=== PATIENT | male | born 1985 | race Caucasian/White ===

== ENCOUNTER 2024-11-07 22:16 | Emergency (ER) | payer OTHER, SELFPAY ==
[2024-11-07 22:24] VITALS: BP 110/73; PULSE 53; RESP 23; O2SAT 96
[2024-11-07 22:26] VITALS: BP 110/73; PULSE 55; RESP 13; TEMP 36.5; O2SAT 98; BMI 27.6
[2024-11-07 22:30] VITALS: BP 110/72; PULSE 50; RESP 12; O2SAT 96
--- NOTE | 2024-11-07 22:32 | DI.RAD.S_ITS ---
PROCEDURE: XR CHEST 1V INDICATIONS: Chest Pain, syncope TECHNIQUE: One view of the chest was acquired. COMPARISON: None. FINDINGS: Surgical changes and devices: None. Lungs and pleura: Lungs are clear. No pleural effusions or pneumothorax. Mediastinum: Mediastinal contours appear normal. Heart size is normal. Bones and chest wall: No suspicious bony lesions. Overlying soft tissues appear unremarkable. IMPRESSION: No acute cardiothoracic process. Dictated by: Dima Ravi M.D. on 11/07/2024 at 23:33 Approved by: Dima Ravi M.D. on 11/07/2024 at 23:34
--- NOTE | 2024-11-07 22:32 | EKG_ITS ---
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
[2024-11-07 23:00] VITALS: BP 105/67; PULSE 51; RESP 14; O2SAT 95
[2024-11-07 23:02] LABS: Prothrombin Time 11.6 SECONDS (9.4-12.5)
[2024-11-07 23:03] LABS: Add Manual Diff / Slide Review NO; Basophils Absolute Auto 100 /uL (0-100); Basophils Percent Auto 0.9 % (0-2); Eosinophils Absolute Auto 200 /uL (0-450); Eosinophils Percent Auto 2.7 % (2-4); Hematocrit 39.9 % (41-53); Hemoglobin 13.5 g/dL (13.5-17.5); Lymphocytes Absolute Auto 2100 /uL (1100-4500); Lymphocytes Percent Auto 27.2 % (25-40); Mean Corpuscular HGB Conc 33.7 % (30-36); Mean Corpuscular Hemoglobin 32.1 PG (26-34); Mean Corpuscular Volume 95.2 fL (80-100); Monocytes Absolute Auto 800 /uL (0-900); Monocytes Percent Auto 10.5 % (3-14); Neutrophils Absolute Auto 4500 /uL (1500-7000); Neutrophils Percent Auto 58.7 % (50-75); Platelet Count 173 X10^3/uL (150-400); Red Blood Cell Count 4.19 X10^6/uL (4.5-5.9); White Blood Cell Count 7.7 X10^3/uL (4.5-11.0)
[2024-11-07 23:04] LABS: PTT Partial Thromboplastin Tim 27 SECONDS (25.1-36.5)
[2024-11-07 23:09] LABS: Alanine Aminotransferase 24 IU/L (<50); Albumin 4.4 g/dL (3.5-5.0); Albumin Globulin Ratio 1.6 (1.0-2.8); Alkaline Phosphatase 58 U/L (38-126); Aspartate Aminotransferase 33 IU/L (17-59); BUN Creatinine Ratio 12.9 (6-22); Bilirubin Total 0.4 mg/dL (0.2-1.3); Blood Urea Nitrogen 12 mg/dL (9-20); Calcium 9.2 mg/dL (8.4-10.2); Carbon Dioxide 25 mmol/L (22-32); Chloride 106 mmol/L (98-107); Creatine Kinase 267 U/L (55-170); Estimated Glomerular Filt Rate > 60 mL/min (>60); Globulin 2.7 g/dL (1.7-4.1); Glucose 122 mg/dL (70-99); HEMOLYSIS < 15 (0-50); Lipase 38 U/L (23-300); Magnesium 1.9 mg/dL (1.6-2.3); Potassium 3.3 mmol/L (3.4-5.1); Sodium 138 mmol/L (137-145); Total Protein 7.1 g/dL (6.3-8.2)
[2024-11-07 23:20] LABS: NT-proBNP (BNP-Adult 18+) < 20 pg/mL (<125); Troponin I < 0.012 ng/mL (0.01-0.034)
[2024-11-07 23:30] VITALS: BP 117/64; PULSE 69; RESP 15; O2SAT 94
[2024-11-08] VITALS (7 sets, daily range): BP systolic 111–138; BP diastolic 66–85; PULSE 53–70; RESP 13–26; O2SAT 97–99
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
[2024-11-08] MEDS: SODIUM CHLORIDE 0.9% 1,000 ML 1000 ML IV (00:40)
[2024-11-08] MEDS: HYDROMORPHONE 0.5 MG INJ IV (01:35)
[2024-11-08 01:51] LABS: Troponin I < 0.012 ng/mL (0.01-0.034)
[2024-11-08] MEDS: KETOROLAC 30 MG/ML VIAL 15 MG IV (02:19)
[2024-11-08] MEDS: methocarbamoL 500 MG TABLET PO (02:19)
[2024-11-08] MEDS: HYDROCODONE/ACET 5/325 PREPACK 1 BOTTLE MISC (02:37)
[2024-11-08] MEDS: HYDROCODONE/ACET 5/325 TABLET 1 TAB PO (02:37)
== END 2024-11-08 02:51 | disposition home or self-care (01) ==
PROVIDERS: Emergency Provider Emergency Medicine
DX: R55 Syncope and collapse (principal); M54.50 Low back pain, unspecified
CPT/HCPCS: 36415; 71045; 71275; 74174; 80053; 82550; 83605; 83690; 83735; 83880; 84484; 85025; 85610; 85730; 93005; 93010; 96361; 96374; 96375; 99284; J1171; J1885; Q9967

== ENCOUNTER → 2024-11-11 15:11 | Outpatient (CLI) | payer OTHER, SELFPAY ==
--- NOTE | 2024-11-11 15:13 | DI.RAD.S_ITS ---
PROCEDURE: XR LUMBAR SPINE 2-3V INDICATIONS: acute pain x 3 days, lumbar spine TECHNIQUE: 3 views of the lumbar spine were acquired. COMPARISON: None. FINDINGS: Bones: 5 [id number] vertebrae are present. Moderate to severe L5-S1 disc height loss with adjacent endplate sclerosis and anterior osteophytosis. There is normal bony alignment. No vertebral body compression fractures. No suspicious bony lesions. Soft tissues: Overlying bowel gas pattern is normal. No suspicious soft tissue calcifications. IMPRESSION: Degenerative change at the L5-S1 level without evidence of acute bony abnormality. Dictated by: Dima Barbosa M.D. on 11/13/2024 at 1:48 Approved by: Dima Barbosa M.D. on 11/13/2024 at 1:49
== END ==
PROVIDERS: Referring Provider Physician Assistant; Visit Provider Physician Assistant
DX: S39.012A Strain of muscle, fascia and tendon of lower back, initial encounter (principal); X58.XXXA Exposure to other specified factors, initial encounter
CPT/HCPCS: 72100

== ENCOUNTER → 2024-11-20 08:40 | Outpatient (CLI) | payer OTHER, SELFPAY ==
[2024-11-20 10:05] LABS: Cholesterol 213 mg/dL (140-199); Creatine Kinase 189 U/L (55-170); HDL Cholesterol 40 mg/dL (40-60); LDL Cholesterol Calculated 156 mg/dL (<100); Triglycerides 86 mg/dL (35-150)
== END ==
PROVIDERS: PCP Family Medicine; Referring Provider Family Medicine; Visit Provider Family Medicine
DX: Z13.220 Encounter for screening for lipoid disorders (principal); R74.8 Abnormal levels of other serum enzymes
CPT/HCPCS: 36415; 80061; 82550

== ENCOUNTER → 2024-12-25 10:08 | Outpatient (CLI) | payer OTHER, SELFPAY | PROVIDERS: PCP Family Medicine; Referring Provider Family Medicine; Visit Provider Family Medicine | DX: M79.10 Myalgia, unspecified site (principal) | CPT/HCPCS: 36415; 86617 ==